=== PATIENT | female | born 1965 | race Caucasian/White ===

== ENCOUNTER 2022-12-18 13:14 | Emergency (ER) | payer SELFPAY ==
[~2022-12-18 13:14] MED LIST: Iopamidol 370 76% 100 ML VIAL ONE
[2022-12-18 14:32] LABS: #Eosinphils 0.1 10x3/uL (0.0-0.5); #Monocytes 1.2 10x3/uL (0.0-1.1); #Neutrophils 5.8 10x3/uL (1.5-8.4); %Basophils 0.4 % (0.0-2.0); %Eosinophils 0.8 % (0.0-6.0); %Lymphocytes 14.3 % (18.0-47.0); %Monocytes 14.7 % (0.0-10.0); %Neutrophils 68.7 % (40.0-75.0); Hematocrit 26.5 % (34.9-44.5); Hemoglobin 8.1 g/dL (12.0-15.5); Mean Corpuscular HGB CONC 30.6 g/dL (32.0-36.0); Mean Corpuscular Hemoglobin 30.2 pg (27.0-33.0); Mean Corpuscular Volume 98.9 fl (81.6-98.3); Mean Platelet Volume 8.7 fl (7.4-10.4); Platelet Count 488 10x3/uL (150-450); RBC Distribution Width 16.2 % (11.5-14.5); Red Blood Cell (RBC) Count 2.68 10x6/uL (3.90-5.03); White Blood Cell (WBC) Count 8.5 10x3/uL (3.5-10.5)
[2022-12-18 14:48] LABS: ALT (SGPT) 45 U/L (8-55); AST (SGOT) 16 U/L (5-34); Albumin 3.1 g/dL (3.5-5.0); Alkaline Phosphatase 95 U/L (40-110); Anion Gap 15 mmol/L (10-20); BUN (Urea Nitrogen) 11 mg/dL (9.8-20.1); Bilirubin, Total 0.5 mg/dL (0.2-1.2); Calc. Creatinine Clearance 0 mL/min (70-130); Calcium 8.4 mg/dL (7.8-10.44); Carbon Dioxide 23 mmol/L (22-29); Chloride 106 mmol/L (98-107); Estimated GFR 86; Globulin 2.5 g/dL (2.4-3.5); Glucose 109 mg/dL (70-105); Magnesium 1.7 mg/dL (1.6-2.6); Potassium 4.1 mmol/L (3.5-5.1); Protein, Total 5.6 g/dL (6.0-8.3); Sodium 140 mmol/L (136-145)
[2022-12-18 14:53] LABS: Troponin I 0.044 ng/mL (< 0.028)
[2022-12-18] MEDS ORDERED: Labetalol HCl 100 MG/20 ML VIAL ONE (15:16)
[2022-12-18 16:36] LABS: SARS-CoV-2 NAA Rapid Test Not Detected (NotDetected)
== END 2022-12-18 18:02 | disposition short-term general hospital (02) ==
LOC: CSHERS 13:14
DX: I71.00 Dissection of unspecified site of aorta (principal); I10 Essential (primary) hypertension; Z79.82 Long term (current) use of aspirin; Z20.822 Contact with and (suspected) exposure to COVID-19; Z79.899 Other long term (current) drug therapy
CPT/HCPCS: 36415; 71045; 71275; 74174; 80053; 83735; 84484; 85025; 93005; 96374; Q9967

== ENCOUNTER 2023-04-09 12:18 | Outpatient (CLI) | payer OTHER ==
[~2023-04-09 12:18] MED LIST changes: +Iopamidol 300 61% 100 ML VIAL FS ONE; -Iopamidol 370 76% 100 ML VIAL ONE
== END 2023-04-09 12:19 | disposition home or self-care (01) ==
LOC: CSHCT 12:18
PROVIDERS: ATTEND Internal Medicine
DX: Z93.0 Tracheostomy status (principal); J95.89 Other postprocedural complications and disorders of respiratory system, not elsewhere classified
CPT/HCPCS: 70492; Q9967

== ENCOUNTER 2024-01-26 08:12 | Day surgery (SDC) | payer OTHER, MEDICAID ==
[2024-01-25 11:32] VITALS: BMI 30.7
[2024-01-26] MEDS ORDERED: Ondansetron PF 4 MG/2 ML Vial ONE (08:50)
[2024-01-26] MEDS ORDERED: Lidocaine 1% PF 5 ML VIAL ONE (08:50)
[2024-01-26] MEDS ORDERED: Dexamethasone 4 mg/ml Vial ONE (08:50)
[2024-01-26] MEDS ORDERED: PROPOFOL 20 ML ONE ×2 (08:50→10:03)
[2024-01-26] MEDS ORDERED: fentaNYL 50 mcg/mL 1 mL Vial ONE ×2 (08:50→11:05)
[2024-01-26] MEDS ORDERED: Lidocaine 1% w/Epinephrine 1:200K 30 ML VIAL ONE (09:33)
[2024-01-26 09:44] LABS: #Basophils 0.06 10x3/uL (0.0-0.2); #Eosinophils 0.21 10x3/uL (0.0-0.5); #Monocytes 1.01 10x3/uL (0.0-1.1); #Neutrophils 3.84 10x3/uL (1.5-8.4); %Basophils 0.9 % (0.0-2.0); %Eosinophils 3.1 % (0.0-6.0); %Lymphocytes 25.2 % (18.0-47.0); %Monocytes 14.7 % (0.0-10.0); Hemoglobin 12.5 g/dL (12.0-15.5); Mean Corpuscular HGB CONC 32.9 g/dL (32.0-36.0); Mean Corpuscular Hemoglobin 32.8 pg (27.0-33.0); Mean Corpuscular Volume 99.7 fL (81.6-98.3); Mean Platelet Volume 10.4 fL (7.4-10.4); Platelet Count 190 10x3/uL (150-450); RBC Distribution Width 14.3 % (11.5-14.5); Red Blood Cell (RBC) Count 3.81 10x6/uL (3.90-5.03); White Blood Cell (WBC) Count 6.9 10x3/uL (3.5-10.5)
[2024-01-26] MEDS ORDERED: Clindamycin/D5W 900 mg/50 ml Premix Bag ONE (10:25)
[2024-01-26 10:26] LABS: Anion Gap 12 mmol/L (10-20); BUN (Urea Nitrogen) 31 mg/dL (9.8-20.1); Calc. Creatinine Clearance 70 mL/min (70-130); Calcium 8.6 mg/dL (7.8-10.44); Carbon Dioxide 24 mmol/L (22-29); Chloride 110 mmol/L (98-107); Estimated GFR 61; Glucose 104 mg/dL (70-105); Potassium 4.3 mmol/L (3.5-5.1); Sodium 142 mmol/L (136-145)
[2024-01-26] MEDS ORDERED: ePHEDrine Sulfate 50 MG/10 ML VIAL ONE (10:29)
[2024-01-26] MEDS ORDERED: Calcium Chloride 1 GM/10 ML Abboject SYRINGE ONE (10:31)
[2024-01-26] MEDS ORDERED: SUGAMMADEX SODIUM 200 MG/2 ML VIAL ONE ×2 (10:38→10:45)
[2024-01-26] MEDS ORDERED: Hydrocodone-Acetamin 15 ML UDCUP ONE (11:43)
== END 2024-01-26 12:35 | disposition home or self-care (01) ==
LOC: CSHSDC 08:12
PROVIDERS: ATTEND Otolaryngology Plastic Surgery within the Head & Neck
PROC: 0WQ60ZZ Repair Neck, Open Approach (ICD-10-PCS; principal; 2024-01-26)
DX: J95.04 Tracheo-esophageal fistula following tracheostomy (principal); I10 Essential (primary) hypertension; F32.A Depression, unspecified; J38.6 Stenosis of larynx; R49.0 Dysphonia; E78.5 Hyperlipidemia, unspecified; I71.40 Abdominal aortic aneurysm, without rupture, unspecified; R06.02 Shortness of breath; Z79.899 Other long term (current) drug therapy; Z98.890 Other specified postprocedural states; Z86.73 Personal history of transient ischemic attack (TIA), and cerebral infarction without residual deficits; Z90.710 Acquired absence of both cervix and uterus; F17.200 Nicotine dependence, unspecified, uncomplicated
CPT/HCPCS: 36415; 80048; 85025; 93005; 93010; J1100; J2405; J2704; J3010; J3490